=== PATIENT | male | born 2000 | race Caucasian/White ===

== ENCOUNTER 2023-01-11 07:55 | Emergency (ER) | payer BC, MEDICAID, SELFPAY ==
[2023-01-11 08:01] VITALS: BP 119/74; PULSE 97; RESP 18; TEMP 36.7; O2SAT 94; BMI 18.4
--- NOTE | 2023-01-11 08:19 | XRR_ITS ---
PROCEDURE INFORMATION: Exam: XR Chest Exam date and time: 01/11/2023 7:36 AM Age: 22 years old Clinical indication: Cough and fever and shortness of breath.No history of trauma or recent surgery is provided. TECHNIQUE: Imaging protocol: Radiologic exam of the chest. 1image(s) are provided. Views: 1 view. COMPARISON: No relevant prior studies available. FINDINGS: Lungs: The lung volumes are slightly increased overall which may be effort related versus minimal air trapping.No lobar consolidation is appreciated. There is linear subsegmental atelectasis versus post inflammatory scarring demonstrated. Pleural spaces: No pneumothorax or pleural effusion is appreciated. Heart/Mediastinum: The cardiomediastinal silhouette is normal. No cardiac decompensation is appreciated. There is some central bronchovascular averaging. Diaphragm: The hemidiaphragms are symmetric. Bones/joints: No fracture or dislocation is appreciated. Soft tissues: No radiopaque foreign body or subcutaneous emphysema is appreciated. XR/XR chest 1V portable [id number] IMPRESSION: No lobar consolidation is appreciated.No acute cardiopulmonary changes are appreciated.
--- NOTE | 2023-01-11 08:23 | ED_ITS ---
HPI - Fever General: Chief Complaint: Fever Stated Complaint: fever, back pain, nausea Time Seen by Provider: 01/11/23 07:58 History of Present Illness: Patient presents to the ER with complaints of fever back pain and nausea. This all started yesterday. Patient denies any cough cold congestion dysuria diarrhea. MD elicited complaint: fever Onset (ago): day(s) (Yesterday) Exacerbating factors: nothing Relieving factors: nothing Associated symptoms: Reports flank pain and nausea Treatments prior to arrival fever: acetaminophen Review of Systems General: Reports: 10 or more systems reviewed and unremarkable except in HPI and below GI: Reports: nausea : Reports: flank pain Physical Exam Const: COMMON NORMALS: no acute distress, average body habitus, patient oriented x3, no limitations, healthy appearing, alert and well nourished HENMT: COMMON NORMALS: normocephalic, atraumatic, hearing grossly normal bilaterally, external ears normal, Normal external nose present and moist oral mucous membranes HEAD & SCALP: normocephalic and atraumatic NOSE: Normal external nose present EXTERNAL EAR: Yes external ears normal Eye: COMMON NORMALS: Equal, round and reactive pupils present, EOMs intact bilaterally, conjunctivae normal and no scleral icterus CONJUNCTIVA: Yes conjunctivae normal PUPIL: Yes Equal, round and reactive pupils present Neck/C-Spine: COMMON NORMALS: full ROM, no lymphadenopathy, supple, no meningeal signs, no JVD and Thyroid normal THYROID: Thyroid normal Lymph: LYMPHATIC: no lymphadenopathy noted Chest: COMMONS NORMALS: normal inspection of the chest and normal palpation of entire chest wall Resp: COMMON NORMALS: normal respiratory effort, No retractions, No use of accessory muscles and clear to auscultation bilaterally AUSCULTATION: clear to auscultation bilaterally Cardio: COMMON NORMALS: no JVD, regular rate, regular rhythm, S1 normal heart sound present, S2 normal heart sound present, No gallops present (Cardio), No clicks present (Cardio), No murmurs present (Cardio) and No rub (Cardio) RATE: regular rate RHYTHM: regular rhythm HEART SOUNDS: S1 normal heart sound present and S2 normal heart sound present GI: COMMON NORMALS: Normal to inspection, nondistended, normoactive bowel sounds present, Soft to palpation, non-tender, No hepatosplenomegaly present and no masses PALPATION: Yes Soft to palpation and Yes No hepatosplenomegaly present : COMMON NORMALS: Yes no CVA tenderness BLADDER/KIDNEY EXAM: Yes no CVA tenderness Back/Pelvis: COMMON NORMALS: no CVA tenderness and no thoracic nor lumbar tenderness Neuro: COMMON NORMALS: patient oriented x3 SENSORIUM/ORIENTATION: Yes alert MENINGEAL SIGNS: Yes no meningeal signs Course Vital Signs: Vital signs: Vital Signs Temperature 98.1 F 01/11/23 08:01 Pulse Rate 70 01/11/23 09:46 Respiratory Rate 18 01/11/23 08:01 Blood Pressure 118/66 01/11/23 09:46 Pulse Oximetry 94 01/11/23 09:46 Oxygen Delivery Me thod Room Air 01/11/23 08:01 MDM - Fever Medical Decision Making loy presents with a 1 day history of fever and right-sided low back pain. Physical exam was performed lab work was obtained with a chest x-ray. All of which was which was benign except the urinalysis which showed mild urinary tract infection. Patient will be discharged on antibiotics and is told to follow-up with his PCP within next 1 week as needed. Differential Diagnosis Unlikely abdominal pain, acute appendicitis, calculus of kidney, constipation, diverticulitis, endometriosis, gastroenteritis, pancreatitis or small bowel obstruction Medical Records I reviewed the patient's medical records. Pa Lab Data I reviewed the patient's lab results. 01/11/23 08:50 01/11/23 08:50 Radiology Impressions Chest X-Ray 01/11/23 08:19 IMPRESSION: No lobar consolidation is appreciated.No acute cardiopulmonary changes are appreciated. Laboratory Results WBC 5.6 10^3/uL (4.0-10.0) 01/11/23 08:50 RBC 5.35 10^6/uL (4.1-5.3) H 01/11/23 08:50 Hgb 16.1 g/dL (11.7-16.6) 01/11/23 08:50 Hct 46.9 % (42.0-52.0) 01/11/23 08:50 MCV 87.7 fl (80-94) 01/11/23 08:50 MCH 30.1 pg (28.0-34.0) 01/11/23 08:50 MCHC 34.3 g/dL (30.0-36.0) 01/11/23 08:50 RDW 12.3 % (12.1-15.1) 01/11/23 08:50 Plt Count 240 10^3/cmm (130-400) 01/11/23 08:50 MPV 10.9 fL (7.4-10.4) H 01/11/23 08:50 Neut % (Auto) 78.3 % 01/11/23 08:50 Lymph % (Auto) 7.9 % 01/11/23 08:50 [place] % (Auto) 11.5 % 01/11/23 08:50 Eos % (Auto) 1.4 % 01/11/23 08:50 Baso % (Auto) 0.7 % 01/11/23 08:50 Neut # (Auto) 4.35 10^3/uL (1.8-7.7) 01/11/23 08:50 Lymph # (Auto) 0.4 10^3/uL (0.8-4.8) L 01/11/23 08:50 [place] # (Auto) 0.6 10^3/uL (0.2-0.9) 01/11/23 08:50 Eos # (Auto) 0.1 10^3/uL (0.0-0.8) 01/11/23 08:50 Baso # (Auto) 0.0 10^3/uL (0.0-0.1) 01/11/23 08:50 Nucleated RBC % (auto) 0 % 01/11/23 08:50 Nucleated RBCs # 0.0 /100WBC 01/11/23 08:50 Sodium 139 mmol/L (136-145) 01/11/23 08:50 Potassium 4.4 mmol/L (3.5-5.1) 01/11/23 08:50 Chloride 105 mmol/L (98-107) 01/11/23 08:50 Carbon Dioxide 24 mmol/L (22-29) 01/11/23 08:50 Anion Gap 14.4 (5-19) 01/11/23 08:50 BUN 10 mg/dL (6-20) 01/11/23 08:50 Creatinine 0.8 mg/dL (0.7-1.2) 01/11/23 08:50 GFR Calculation 122.0 mL/min (90-130) 01/11/23 08:50 Glucose 96 mg/dL (65-115) 01/11/23 08:50 Calculated Osmolality 287 mOsm/kg (285-295) 01/11/23 08:50 Calcium 8.6 mg/dL (8.5-10.5) 01/11/23 08:50 Total Bilirubin 1.3 mg/dL (0.15-1.2) H 01/11/23 08:50 AST 14 U/L (0-40) 01/11/23 08:50 ALT 9 U/L (0-41) 01/11/23 08:50 Alkaline Phosphatase 79 U/L (40-130) 01/11/23 08:50 Total Protein 7.2 g/dL (6.6-8.7) 01/11/23 08:50 Albumin 4.2 g/dL (3.5-5.2) 01/11/23 08:50 Globulin 3.0 g/dL (1.3-4.6) 01/11/23 08:50 Urine Color Yellow (Yellow) 01/11/23 08:31 Urine Appearance Clear (CLEAR) 01/11/23 08:31 Urine pH 7 (5-7) 01/11/23 08:31 Ur Specific Hunt 1.005 (1.005-1.030) 01/11/23 08:31 Urine Protein Trace (Negative) 01/11/23 08:31 Urine Glucose (UA) Norm (Normal) 01/11/23 08:31 Urine Ketones 1+ (Negative) H 01/11/23 08:31 Urine Blood Neg (Negative) 01/11/23 08:31 Urine Nitrate Negative (Negative) 01/11/23 08:31 Urine Bilirubin Neg (Negative) 01/11/23 08:31 Urine Urobilinogen 1 mg/dL (Negative) H 01/11/23 08:31 Ur Leukocyte Esterase Trace (Negative) H 01/11/23 08:31 Urine RBC 0-4 /hpf (0-2) H 01/11/23 08:31 Urine WBC 0-4 /hpf (0-5) H 01/11/23 08:31 Ur Squamous Epith Cells 0-4 /hpf (0-5) H 01/11/23 08:31 Amorphous Sediment Not Reportable 01/11/23 08:31 Urine Bacteria 1+ /hpf (NONE) H 01/11/23 08:31 Urine Mucus 3+ /hpf 01/11/23 08:31 Discharge Plan Discharge Patient Disposition: Home Clinical Impression: Urinary tract infection Qualifiers: Urinary tract infection type: acute cystitis Hematuria presence: without hematuria Qualified Code(s): N30.00 - Acute cystitis without hematuria Condition: Stable Prescriptions: New ciprofloxacin HCl 500 mg tablet 500 mg PO Q12H Qty: 14 0RF Discharge Orders: Discharge ED (Routine); Ordered 01/11/23 Ordered By: Allan Perez Referrals: Sacha Munoz DO [Primary Care Provider] - 1 week Patient Instructions: Urinary Tract Infection - Men Coding Level of Care Code ED [facility] for [facility]
[2023-01-11 08:36] VITALS: BP 128/70; PULSE 88; O2SAT 95
[2023-01-11 09:13] LABS: Basophils % 0.7 %; Eosinophils # 0.1 10^3/uL (0.0-0.8); Eosinophils % 1.4 %; Hematocrit 46.9 % (42.0-52.0); Hemoglobin 16.1 g/dL (11.7-16.6); Lymphocytes # 0.4 10^3/uL (0.8-4.8); Lymphocytes % 7.9 %; Mean Corpuscular HGB Conc 34.3 g/dL (30.0-36.0); Mean Corpuscular Hemoglobin 30.1 pg (28.0-34.0); Mean Corpuscular Volume 87.7 fl (80-94); Mean Platelet Volume 10.9 fL (7.4-10.4); Monocytes # 0.6 10^3/uL (0.2-0.9); Monocytes % 11.5 %; Neutrophils # 4.35 10^3/uL (1.8-7.7); Neutrophils % 78.3 %; Nucleated Red Blood Cells % 0 %; Platelet Count 240 10^3/cmm (130-400); Red Blood Count 5.35 10^6/uL (4.1-5.3); Red Cell Distribution Width 12.3 % (12.1-15.1); White Blood Count 5.6 10^3/uL (4.0-10.0)
[2023-01-11 09:19] VITALS: BP 111/57; PULSE 71; O2SAT 93
[2023-01-11 09:23] LABS: Glucose Urine UA Norm (Normal); Ketones Urine 1+ (Negative); Protein Urine Trace (Negative); Specific Gravity, Urine 1.005 (1.005-1.030); Urine Appearance Clear (CLEAR); Urine Color Yellow (Yellow); pH Urine 7 (5-7)
[2023-01-11 09:24] LABS: Add Urine Microscopic? YES; Bilirubin Urine Neg (Negative); Blood Urine Neg (Negative); Leukocyte Esterase Urine Trace (Negative); Nitrate Urine Negative (Negative); Urobilinogen Urine 1 mg/dL (Negative)
[2023-01-11 09:25] LABS: Add Urine Culture? No; Bacteria Urine 1+ /hpf; Mucus Urine 3+ /hpf; RBC Urine 0-4 /hpf (0-2); Squamous Epithelial Cell Urine 0-4 /hpf (0-5); WBC Urine 0-4 /hpf (0-5)
[2023-01-11 09:28] LABS: Alanine Aminotransferase 9 U/L (0-41); Albumin Level 4.2 g/dL (3.5-5.2); Alkaline Phosphatase 79 U/L (40-130); Anion Gap 14.4 (5-19); Aspartate Amino Transferase 14 U/L (0-40); Blood Urea Nitrogen 10 mg/dL (6-20); Calcium 8.6 mg/dL (8.5-10.5); Carbon Dioxide 24 mmol/L (22-29); Chloride 105 mmol/L (98-107); Glucose 96 mg/dL (65-115); Osmolality Calculated 287 mOsm/kg (285-295); Potassium 4.4 mmol/L (3.5-5.1); Sodium 139 mmol/L (136-145); Total Bilirubin 1.3 mg/dL (0.15-1.2); Total Protein 7.2 g/dL (6.6-8.7)
[2023-01-11 09:46] VITALS: BP 118/66; PULSE 70; O2SAT 94
== END 2023-01-11 09:47 | disposition home or self-care (01) ==
PROVIDERS: Emergency Provider Emergency Medicine; PCP Electrodiagnostic Medicine
DX: N30.00 Acute cystitis without hematuria (principal)
CPT/HCPCS: 36415; 71045; 80053; 81001; 85025; 99284